=== PATIENT | female | born 1995 | race Caucasian/White ===

== ENCOUNTER → 2018-02-28 16:26 | Outpatient (CLI) | payer BC, SELFPAY ==
[2018-03-03 16:12] LABS: Chlamydia By Nucleic Acid AMP Negative (Negative); Gonococcus By Nucleic Acid AMP Negative (Negative)
[2018-03-04 12:46] LABS: HPV HIGH RISK 16/18 Negative (Negative); Trich. Vag By Nucleic Acid AMP Negative (Negative)
[2018-03-04 12:47] LABS: HPV Reflexed? YES, CHARGE PATIENT
== END ==
PROVIDERS: Family Provider Family Medicine; PCP Family Medicine; Visit Provider Family Medicine
DX: Z01.419 Encounter for gynecological examination (general) (routine) without abnormal findings (principal)
CPT/HCPCS: 87491; 87591; 87624; 88175; G0145